=== PATIENT | male | born 1995 | race Asian ===

== ENCOUNTER 2017-02-04 00:07 | Emergency (ER) | payer OTHER ==
[~2017-02-04] VITALS: Ht 162.6 cm; Wt 67.6 kg
[2017-02-04 00:11] VITALS: TEMP 36.8; Ht 162.6 cm; Wt 67.6 kg
[2017-02-04] MEDS ORDERED: GI COCKTAIL PO STA (00:28)
[2017-02-04] MEDS ORDERED: ONDANSETRON INJ 2 MG/ML 2 ML VIAL IV STA (00:28)
[2017-02-04] MEDS ORDERED: LIDOCAINE HCL 2% VISC SOLN 20 ML UDC ONE (00:39)
[2017-02-04] MEDS ORDERED: ALUMINUM/MAGNESIUM SUSP 30 ML UDC ONE (00:39)
[2017-02-04 01:04] LABS: BASO % 0.2 %; BASO ABS # 0.02 K/uL (0-0.2); COMPLETE YES; EOS % 0.3 %; HEMATOCRIT 45.7 % (42-52); IG% 0.3 %; LYMPH % 15.9 %; LYMPH ABS # 1.86 K/uL (1.2-3.4); MEAN CELL VOLUME 88.6 fL (80-100); MEAN CORPUSCULAR HEMOGLOBIN 30.6 pg (25-34); MEAN CORPUSCULAR HGB CONC 34.6 g/dl (32-36); MEAN PLATELET VOLUME 11.1 fL (7.4-10.4); MONO % 3.9 %; NEUT % 79.4 %; PLATELET COUNT 205 K/uL (130-400); RED BLOOD COUNT 5.16 M/uL (4.7-6.1); WHITE BLOOD COUNT 11.67 K/uL (4.8-10.8)
[2017-02-04 01:21] LABS: BUN/CREATININE RATIO 15.7 (10-20); CALCIUM 9.4 mg/dl (8.5-10.1); CREATININE 0.89 mg/dl (0.60-1.40); POTASSIUM 3.6 mmol/L (3.5-5.1)
[2017-02-04 01:24] LABS: ALB/GLOB RATIO 1.3 (0.9-2)
[2017-02-04] MEDS ORDERED: ACETAMINOPHEN 500 MG TAB PO STA (02:48)
[2017-02-04 02:49] VITALS: BP 114/73; PULSE 69; O2SAT 97
--- NOTE | 2017-02-04 02:54 | EMERGENCY ROOM VISIT NOTE ---
History First contact with patient: 00:17 Chief Complaint: ABDOMINAL PAIN Stated Complaint: STOMACH ACHE, GASTRITIS Nursing Triage Summary: abdominal pain History of Present Illness The patient is a 21 year old male who presents to the Emergency Room with complaints of abdominal pain which began yesterday. The patient states that he has had pain in his upper abdomen since eating lunch yesterday. He states that he ate very spicy food prior to the onset of symptoms. He states his pain worsens with eating. The pain has gradually worsened. He was seen at [facility] [address] today and had blood work drawn. He states he has not received the results at this time. He was given a prescription for omeprazole which he started today. The patient states his pain is a 2/10 at rest and 5/10 after eating. He reports some slight nausea associated with the symptoms. He denies vomiting. He denies changes in bowel movements. The patient does have a history of gastritis and is unsure if this is similar. He denies any fevers/chills. Review of Systems A complete 10 point review of systems was reviewed with the patient with pertinent positives and negatives as per history of present illness. All else were negative. Social History Smoking Status: Never Smoker Current/Historical Medications No Active Prescriptions or Reported Meds Physical Exam Vital Signs Date Time Temp Pulse Resp B/P (MAP) Pulse Ox O2 Delivery O2 Flow Rate FiO2 02/04/17 02:49 69 18 114/73 97 Room Air 02/04/17 02:13 65 16 130/73 97 Room Air 02/04/17 00:11 36.8 66 18 117/75 96 Room Air Physical Exam VITALS: Vitals are noted on the nurse's note and reviewed by myself. Vital signs stable. GENERAL: This is a 21-year-old male, in no acute distress, nondiaphoretic, well- developed well-nourished. EARS: External auditory canals clear, tympanic membranes pearly monge without erythema or effusion bilaterally. EYES: Pupils equal round and reactive to light and accommodation. MOUTH: Mucous membranes moist. NECK: Supple without nuchal rigidity. HEART: Regular rate and rhythm without murmurs gallops or rubs. LUNGS: Clear to auscultation bilaterally without wheezes, rales or rhonchi. ABDOMEN: Positive bowel sounds x 4. Soft, mild epigastric tenderness to palpation. No guarding or rebound tenderness. No tenderness of the right upper quadrant. NEURO: Patient was alert and oriented to person place and time. Medical Decision & Procedures ER Provider Diagnostic Interpretation: ABDOMINAL SERIES: No obstructive findings. Laboratory Results 02/04/17 00:45 Red Blood Count 5.16, Mean Corpuscular Volume 88.6, Mean Corpuscular Hemoglobin 30.6, Mean Corpuscular Hemoglobin Concent 34.6, Mean Platelet Volume 11.1, Neutrophils (%) (Auto) 79.4, Lymphocytes (%) (Auto) 15.9, Monocytes (%) (Auto) 3.9, Eosinophils (%) (Auto) 0.3, Basophils (%) (Auto) 0.2, Neutrophils # (Auto) 9.27, Lymphocytes # (Auto) 1.86, Monocytes # (Auto) 0.45, Eosinophils # (Auto) 0.04, Basophils # (Auto) 0.02 02/04/17 00:45 Test 02/04/17 00:45 White Blood Count 11.67 K/uL (4.8-10.8) Red Blood Count 5.16 M/uL (4.7-6.1) Hemoglobin 15.8 g/dL (14.0-18.0) Hematocrit 45.7 % (42-52) Mean Corpuscular Volume 88.6 fL (80-100) Mean Corpuscular Hemoglobin 30.6 pg (25-34) Mean Corpuscular Hemoglobin Concent 34.6 g/dl (32-36) Platelet Count 205 K/uL (130-400) Mean Platelet Volume 11.1 fL (7.4-10.4) Neutrophils (%) (Auto) 79.4 % Lymphocytes (%) (Auto) 15.9 % Monocytes (%) (Auto) 3.9 % Eosinophils (%) (Auto) 0.3 % Basophils (%) (Auto) 0.2 % Neutrophils # (Auto) 9.27 K/uL (1.4-6.5) Lymphocytes # (Auto) 1.86 K/uL (1.2-3.4) Monocytes # (Auto) 0.45 K/uL (0.11-0.59) Eosinophils # (Auto) 0.04 K/uL (0-0.5) Basophils # (Auto) 0.02 K/uL (0-0.2) RDW Standard Deviation 39.6 fL (36.4-46.3) RDW Coefficient of Variation 12.4 % (11.5-14.5) Immature Granulocyte % (Auto) 0.3 % Immature Granulocyte # (Auto) 0.03 K/uL (0.00-0.02) Anion Gap 7.0 mmol/L (3-11) Est Creatinine Clear Calc Drug Dose 109.1 ml/min Estimated GFR () 140.7 Estimated GFR (Non- 121.4 BUN/Creatinine Ratio 15.7 (10-20) Calcium Level 9.4 mg/dl (8.5-10.1) Total Bilirubin 0.7 mg/dl (0.2-1) Aspartate Amino Transf (AST/SGOT) 16 U/L (15-37) Alanine Aminotransferase (ALT/SGPT) 27 U/L (12-78) Alkaline Phosphatase 50 U/L (45-117) Total Protein 7.9 gm/dl (6.4-8.2) Albumin 4.4 gm/dl (3.4-5.0) Globulin 3.5 gm/dl (2.5-4.0) Albumin/Globulin Ratio 1.3 (0.9-2) Lipase 134 U/L (73-393) Medications Administered Medications (Trade) Dose Ordered Sig/Suzi Route Start Time Stop Time Status Last Admin Dose Admin Ondansetron HCl (Zofran Inj) 4 mg NOW STAT IV 02/04/17 00:28 02/04/17 00:31 DC 02/04/17 00:50 4 MG Lidocaine HCl (Viscous Lidocaine 2% Soln) 20 ml STK-MED ONCE .ROUTE 02/04/17 00:39 02/04/17 00:40 DC 02/04/17 00:50 20 ML Al Hydroxide/Mg Hydroxide (Maalox Susp) 30 ml STK-MED ONCE .ROUTE 02/04/17 00:39 02/04/17 00:40 DC 02/04/17 00:50 30 ML Acetaminophen (Tylenol Tab) 1,000 mg NOW STAT PO 02/04/17 02:48 02/04/17 02:49 DC 02/04/17 02:55 1,000 MG Medical Decision Differential diagnosis includes gastritis, gastroenteritis, GERD, cholecystitis , pancreatitis, among others. The patient is a 21-year-old male who presents today complaining of epigastric abdominal pain. Labs revealed a minimal leukocytosis. LFTs are within normal limits. Lipase was not elevated. Patient has minimal tenderness on exam. Abdominal series shows a nonobstructive bowel gas pattern. Patient was encouraged to continue Prilosec and use orva-nap-sowztmm treatment as needed for symptoms. He was given a dose of Tylenol and a GI cocktail for symptoms the emergency department. The patient's case was reviewed with Dr. Menjivar, ED attending physician, who agreed with my assessment and treatment plan. Based on the patient's presentation and work up, I feel the patient is stable for outpatient treatment. The patient was educated to return to the emergency department for any worsening of their current condition or new/concerning symptoms. [facility] Medication Reconcilliation Current Medication List: was personally reviewed by me Blood Pressure Screening Patient's blood pressure: Normal blood pressure Impression Primary Impression: Epigastric abdominal pain Departure Information Dispostion Home / Self-Care Condition GOOD Prescriptions No Active Prescriptions or Reported Meds Referrals [facility] (PCP) Patient Instructions GERD Lifestyle Changes, My [facility] Additional Instructions You have been treated in the Emergency Department for your Abdominal Pain. Laboratory results and imaging studies have ruled out any emergent causes for your abdominal pain which would warrant admission or surgery. For pain control, you can use the following vqau-vub-brcaqdo medicines (if >12 yo): - Regular strength (325mg/tab) Tylenol (acetaminophen) 2 tabs every 4-6 hours as needed. Do not exceed 12 tablets in a 24 hour period. Avoid taking more than 4 grams (4000 mg) of Tylenol per day. This includes any other sources of acetaminophen you may take on a regular basis. - Regular strength (200 mg/tab) Advil (ibuprofen) 1-2 tabs every 4-6 hours as needed. Do not exceed a dose of 3200 mg per day. Continue the Protonix as prescribed. You may take Maalox [id number] for relief of your symptoms. Drink plenty of water and stay well hydrated. As with any trip to the Emergency Department, you should follow-up with your Primary Care Provider from today's visit. Return to the emergency department if your symptoms persist despite treatment plan outlined above or if the following symptoms occur: fevers, chills, worsening nausea/vomiting, blood in your stool or urine.
--- NOTE | 2017-02-04 08:10 | DIAGNOSTIC IMAGING REPORT ---
CHEST AND ABDOMEN 2 VIEWS HISTORY: epigastric abdominal pain COMPARISON: None. FINDINGS: The lungs are clear. The cardiomediastinal silhouette is within normal limits. There is no pneumoperitoneum or pneumatosis. The bowel gas pattern is unremarkable. No evidence for bowel obstruction. No pathologic calcifications. IMPRESSION: No acute cardiopulmonary process. No evidence for bowel obstruction. Electronically signed by: Familia Carver M.D. 02/04/2017 8:08 AM Dictated Date/Time: 02/04/2017 8:07 AM
== END 2017-02-04 03:07 | disposition home or self-care (01) ==
LOC: C.EDB 00:09 → C.EDC 03:07
DX: R10.13 Epigastric pain (principal)